=== PATIENT | male | born 1980 | race Caucasian/White ===

== ENCOUNTER 2024-12-24 11:20 | Emergency (ER) | payer OTHER, SELFPAY ==
--- NOTE | ~2024-12-24 | XR_ITS ---
Right ankle Technique: AP, oblique, and lateral views were obtained. Clinical History: Pain Findings: No acute fracture or dislocation is seen. Osseous alignment is anatomic. Ankle mortise and other visualized joint spaces are preserved. Soft tissues are otherwise unremarkable. Impression: No acute abnormality. Reviewed, dictated and finalized at location . Impression: No acute abnormality.
[2024-12-24 11:28] VITALS: BP 135/78; PULSE 81; RESP 20; TEMP 36.9; O2SAT 99
--- NOTE | 2024-12-24 12:14 | ED.LOWEXIN ---
HPI - Extremity Injury (Lower) General Chief Complaint: Extremity Injury, Lower Stated Complaint: Right Ankle Injury Time Seen by Provider: 12/24/24 11:30 Source: patient Mode of arrival: ambulatory Limitations: no limitations History of Present Illness HPI Narrative: 44-year-old male presents with complaint of pain and swelling to right ankle. Patient was at work and was unloading pallets. Reports that plastic that was wrapped around products on a Pallet became caught on his foot causing him to trip and fall. Patient ambulatory with limp. pain worse when bearing weight. Distal neurovascularly intact. All systems reviewed and negative except as noted above. Related Data Home Medications ?Medication ?Instructions ?Recorded ?Confirmed ?Last Taken ?Type atorvastatin 20 mg tablet mg 12/24/24 Unknown History dulaglutide 3 mg/0.5 mL mg subcut 12/24/24 Unknown History subcutaneous pen injector (Trulicity) glipizide 10 mg tablet, extended mg PO 12/24/24 Unknown History release 24 hr lisinopril 10 tablet 12/24/24 Unknown History mg-hydrochlorothiazide 12.5 mg tablet metformin 1,000 mg tablet mg 12/24/24 Unknown History Allergies Allergy/AdvReac Type Severity Reaction Status Date / Time No Known Allergies Allergy Verified 12/24/24 11:36 Review of Systems Review of Systems: CONSTITUTIONAL: Denies fever, chills, or sweats. EYES: Denies visual changes, redness, or discharge. ENT: Denies rhinorrhea, congestion, sore throat, or otalgia. CARDIOVASCULAR: Denies chest pain, palpitations, or edema. RESPIRATORY: Denies cough or dyspnea. GASTROINTESTINAL: Denies abdominal pain, nausea, vomiting, or diarrhea. GENITOURINARY: Denies dysuria or hematuria. SKIN: Denies rash or itching. MUSCULOSKELETAL: Reports right ankle pain and swelling. NEUROLOGIC: Denies headache, numbness, or weakness. PSYCHIATRIC: Denies anxiety or depression. All other systems reviewed are negative, except as documented in HPI. PMFSH Comments At time of signature, agree with nursing past medical, surgical, social and family history. There is no relevant family history pertinent to the presenting complaint. Exam Narrative: GENERAL: This is a well-nourished, well-developed patient, in no apparent distress. HEAD: normocephalic, atraumatic. EYES: PERRL. Sclera clear/white. Vision is grossly intact. EARS: External ears normal NOSE: External nose normal NECK: Neck supple, non-tender without lymphadenopathy, masses or thyromegaly. CARDIOVASCULAR: Regular rate and rhythm without murmurs, gallops, or rubs. RESPIRATORY: Clear to auscultation. Breath sounds equal bilaterally. No wheezes, rales, or rhonchi. SKIN: warm, Dry, intact with no suspicious lesions or rash, good texture and turgor. NEURO: awake, alert, and oriented to person, place and time. There were no obvious focal neurologic abnormalities. EXTREMITIES: Tenderness to lateral and anterior aspect right ankle with mild swelling. No deformity. Range of motion decreased due to pain. Distal neurovascularly intact. Course Course Level of Care: Express Care Visit Vital Signs Vital signs: Vital Signs Temperature 36.9 C 12/24/24 11:28 Pulse Rate 81 12/24/24 11:28 Respiratory Rate 20 12/24/24 11:28 Blood Pressure 135/78 12/24/24 11:28 Pulse Oximetry 99 12/24/24 11:28 Oxygen Delivery Room Air 12/24/24 11:28 Temperature 36.9 C 12/24/24 11:28 Pulse Rate 81 12/24/24 11:28 Respiratory Rate 20 12/24/24 11:28 Blood Pressure 135/78 12/24/24 11:28 Pulse Oximetry 99 12/24/24 11:28 Oxygen Delivery Room Air 12/24/24 11:28 Reviewed MDM - Extremity Injury (Lower) MDM Narrative Medical decision making narrative: x-ray right ankle is negative for fracture. Discussed results with patient. Patient states having a lot of pain when walking. Will give crutches. Recommend using for the next 3-5 days. Recommend with primary care physician if pain is not improving. Patient is well-appearing, nontoxic. Differential Diagnosis Differential diagnosis: Likely ankle sprain and strain and ankle fracture Imaging Data My impression: agree with radiologist Radiologist's impression: Right ankle Technique: AP, oblique, and lateral views were obtained. Clinical History: Pain Findings: No acute fracture or dislocation is seen. Osseous alignment is anatomic. Ankle mortise and other visualized joint spaces are preserved. Soft tissues are otherwise unremarkable. Impression: No acute abnormality. Discharge Plan Discharge Clinical Impression: Mild sprain of right ankle Patient Disposition: Home Condition: Stable Instructions: Ankle Sprain (ED) Additional Instructions: the x-ray of your right ankle was negative for fracture. Wear Gerard wrap to compress swelling and provide support. Use crutches for the next 3-5 days. Take ibuprofen or Tylenol every 6-8 hours as needed for pain. Elevate when at rest. Apply ice as needed for pain. See your doctor if pain is not improving. Patient Language: Greenlandic Prescriptions: No Action atorvastatin 20 mg tablet glipizide 10 mg tablet extended release 24hr PO metformin 1,000 mg tablet lisinopril-hydrochlorothiazide 10-12.5 mg tablet Trulicity 3 mg/0.5 mL pen injector SUBCUT Follow-up/Referrals: UNKNOWN,DOCTOR [Primary Care Provider] - Stand Alone Forms: Work/School Release IP Time of Disposition: 12:25
--- OUTSIDE RECORDS SUMMARY | 2024-12-24 12:35 | XMS_ITS | Referral Summary ---
Author Organization [facility] [address] Address [address] [place] [address] Care Team Providers Care Artificial Teeth Inspector Name Role Phone Ryan Levine MD Primary Care Provider [phone] Encounters Date Type Department Care Team Description 11/23/2024 10:00 AM CDT Office Visit [facility] at [address] [phone] Julianna Gilliland DO Type 2 diabetes mellitus with hyperglycemia, without long-term current use of insulin (HCC) (Primary Dx) 11/20/2024 Telephone [facility] [address] [place] [phone] Corazon Johns NP 11/16/2024 2:30 PM CDT [facility] [address] [place] [phone] Corazon Johns NP Type 2 diabetes mellitus with diabetic polyneuropathy, without long-term current use of insulin (HCC) (Primary Dx); Paresthesias in right hand; Morbid obesity with BMI of 40.0-44.9, adult (HCC); Essential hypertension; Mixed hyperlipidemia due to type 2 diabetes mellitus (HCC) 11/16/2024 Telephone [facility] [address] [place] [address] Ryan Levine MD 11/09/2024 10:00 AM CDT [facility] [address] [place] [address] Ryan Levine MD Morbid obesity with BMI of 40.0-44.9, adult (HCC) (Primary Dx); Type 2 diabetes mellitus with diabetic polyneuropathy, without long-term current use of insulin ([facility]); Routine history and physical examination of adult 10/31/2024 Telephone [facility] [address] [place] [address] Ryan Levine MD NonCompliant Patient 10/19/2024 11:20 AM CDT Lab [facility] [address] [place] [address] Type 2 diabetes mellitus with diabetic polyneuropathy, without long-term current use of insulin ([facility]); Prostate cancer screening; Mixed hyperlipidemia due to type 2 diabetes mellitus ([facility]); Essential hypertension 09/26/2024 Telephone [facility] [address] [place] [address] Ryan Levine MD from Last 3 Months Allergies No known active allergies Medications blood-glucose meter misc Use daily or as directed for monitoring of diabetes. 1 each 024 Active lancets misc Use to check blood sugar bid 200 each 3 024 Active atorvastatin (LIPITOR) 20 mg tabletIndications :Mixed hyperlipidemia due to type 2 diabetes mellitus (HCC) Take 1 tablet by mouth once daily 30 tablet 5 025 Active metFORMIN (GLUCOPHAGE) 1,000 mg tabletIndications :Type 2 diabetes mellitus with diabetic polyneuropathy, without long-term current use of insulin ([facility]) Take 1 tablet by mouth twice daily 60 tablet 5 025 Active blood glucose diagnostic (glucose blood) stripIndications: Type 2 diabetes mellitus with diabetic polyneuropathy, without long-term current use of insulin ([facility]) Use to check blood sugar bid 200 each 3 025 2025 Active blood-glucose meter kitIndications:Ty pe 2 diabetes mellitus with diabetic polyneuropathy, without long-term current use of insulin ([facility]) Use to check blood sugar bid 1 kit 025 Active blood glucose diagnostic (glucose blood) stripIndications: Type 2 diabetes mellitus with diabetic polyneuropathy, without long-term current use of insulin (HCC) Use to check blood sugar bid 200 each 3 025 2025 Active lancets miscIndications:T ype 2 diabetes mellitus with diabetic polyneuropathy, without long-term current use of insulin (HCC) Use to check blood sugar bid 200 each 3 Active dulaglutide (Trulicity) 3 mg/0.5 mL pen injector Inject 0.5 mL (3 mg total) under the skin every 7 days 2 mL 6 Active FreeStyle Mariel 3 Plus Sensor device 1 Device continuously E11.65 6 each 4 025 2024 Active blood-glucose,rec eiver,cont (FreeStyle Mariel 3 [place]) misc Use for BG monitoring 1 each Active glipiZIDE XL (GLUCOTROL XL) 10 mg 24 hr tablet Take 2 tablets by mouth once daily 180 tablet 3 Active lisinopril-hydroC HLOROthiazide (ZESTORETIC) 10-12.5 mg per tabletIndications :Essential hypertension Take 1 tablet by mouth once daily 30 tablet 2 Active glipiZIDE XL (GLUCOTROL XL) 10 mg 24 hr tabletIndications :type 2 diabetes mellitus Take 2 tablets (20 mg total) by mouth daily 60 tablet 5 024 2024 Discontinued lisinopril-hydroC HLOROthiazide (ZESTORETIC) 10-12.5 mg per tabletIndications :Essential hypertension Take 1 tablet by mouth daily 30 tablet 5 024 2024 Discontinued Active Problems Problem Noted Date Diagnosed Date Paresthesias in right hand 11/16/2024 Assessment & Plan (11/16/2024 3:10 PM CDT): Acute, new Likely positional v recurrent movement Relative history: Reports symptoms occur during masturbation Current meds: None Today's Plan: Discussed repositioning to avoid paresthesias of hand during particular activities Discussed possibility of new onset neuropathy in setting of uncontrolled DM Encourage patient to take mental note and/or keep diary of frequency, intensity, activity associated with paresthesias Goal: decreased episodes of paresthesias Mixed hyperlipidemia due to type 2 diabetes speedy itus 03/19/2024 Assessment & Plan (11/16/2024 2:09 PM CDT): Chronic, unstable Relative hx: DM2, obesity, HTN Labs reviewed: CMP, triglycerides Current therapy (ies)/home meds: Lipitor Today's Plan: Meds: Continue Lipitor Recs: heart healthy diet, regular exercise, managing stress, decreasing alcohol intake Goal: Patient is specific triglyceride goal less than 200 mg/dL Assessment & Plan (08/01/2024 4:11 PM WARP CLAMPER): FLP AND LDL WERE REVIEWED GOAL LDL IS UNDER 100 Assessment & Plan (03/19/2024 6:15 PM CDT): GOAL LDL IS UNDER 100 FOR PRIMARY PREVENTION Type 2 diabetes mellitus wit h diabetic polyneuropathy, without long-term current use of insulin 09/16/2023 Assessment & Plan (11/16/2024 2:52 PM CDT): Chronic, unstable Relative hx: Episodes of hyperglycemia Current meds: Metformin, Trulicity, glipizide, Ozempic Glucose readings at home: Greater than 400 Labs reviewed: Lab Results Component Value Date HGBA1C 10.7 (H) 10/19/2024 Today's Plan: Meds: Continue meds as above given recent adjustment Point of care glucose today 231 Elevated blood sugars likely contributed to recent steroid use Labs: none today Recs: heart healthy diet, regular exercise, managing stress Consults: Established with endocrine Goal: hemoglobin A1c < 7.0% per PCP Assessment & Plan (08/01/2024 4:11 PM WARP CLAMPER): CHRONIC AND STABLE DISCUSSED BETTER CONTROL OF DIABETES WITH RESULTANT IMEPROVEMENT IN NERUOPATHY Assessment & Plan (03/19/2024 6:13 PM CDT): ENCOURAGED DILATED EYE EXAM GOAL HBAIC IS UNDER 7 PERCENT LAST HBAIC WAS AROUND 9.9 PERCENT FOOT EXAM IS NL LAST CREATININE WAS NL Assessment & Plan (11/22/2023 5:33 PM CDT): Contin ue metformin 1000 mg po bid Contin ue glucotrol 5 mg po day Timer table written given Fs fasting 120 random less then 180 Off of zoempic issues with insurance trial of truclicity once a week after we get the hbaic results Assessment & Plan (09/16/2023 2:34 PM WARP CLAMPER): Dm type 2 with (neuropathy) Recent A1C?. Continue low carb diet. Consider Dietary referral Next A1C - now Most recent Microalbumin - due now Continue current medications. Patient advised Ozempic may not be approved through [employer]. If not will try alternative Dilated retinal eye exam -Due now, referral placed BP above goal <130/80 on ACEI - Continue current meds and will adjust at f/u if needed Vaccines - PCV, Flu, TDAP Essential hypertension 09/16/2023 Assessment & Plan (11/16/2024 2:48 PM CDT): Chronic, stable Differential dx: HTN 2/2 essential/benign v DM2 Relative hx: DM2, obesity BP today: 142/60 Labs reviewed: CMP, elevated glucose otherwise unremarkable Current therapy (ies)/home meds: Lisinopril-hydrochlorothiazide Today's Plan: Meds: Continue lisinopril-HCTZ Labs: Recommend repeat CMP in 6 months Recs: heart healthy diet, regular exercise, managing stress Goal: BP 130/80 Assessment & Plan (08/01/2024 4:10 PM WARP CLAMPER): GOAL BP IS 130/80 OR UNDER LOW NA DIET Assessment & Plan (03/19/2024 6:14 PM CDT): GOAL BP IS 130/80 OR UNDER ON VERONICA PLUS DIURETCI Assessment & Plan (11/22/2023 5:33 PM CDT): Goal bp is 130/80 or less On veronica plus hctz Assessment & Plan (09/16/2023 2:30 PM WARP CLAMPER): Chronic and elevated. Goal < 130/80. Discussed with patient. Recommend continue lisinopril/HCTZ 10-12.5 daily Low-salt diet Will recheck at follow-up in 4 weeks and if still elevated will adjust medications Morbid obesity with BMI of 40.0-44.9, adult 02/2024 Assessment & Plan (11/16/2024 2:48 PM CDT): Chronic, unstable Differential ddx: excess caloric intake (in setting of chronicity of disease) v DM2 Relative history: DM2, HTN, HLD Current meds: Ozempic Wt Readings from Last 3 Encounters: 11/09/24 135.4 kg (298 lb 9.6 oz) 08/01/24 134.7 kg (297 lb) 05/10/24 135.9 kg (299 lb 11.2 oz) There is no height or weight on file to calculate BMI. Today's Plan: Meds: Continue Ozempic, no change in dosing given recent initiation 11/09/2024. monitor for side effects of medication primarily GI (constipation, nausea) and mental status changes (forgetfulness, dizziness, mood swings) Labs: BMP, Mag heart healthy diet, regular exercise, managing stress, decreasing alcohol intake Goal: decrease weight by 1-2 lbs/week Assessment & Plan (11/09/2024 5:43 PM CDT): DISCUSSED LIFE STYLE MODIFICATION Assessment & Plan (03/19/2024 6:15 PM CDT): STATUS CHRONIC AND STABLE DISCUSSED DIETARY COUNSELLING DISCUSSED MAY HAVE TO INCREASE THE DOSAGE OF TRULICITY ONCE I GET THE HBAIC RESULTS Assessment & Plan (11/22/2023 5:34 PM CDT): Status stable with co morbidities Including dm type 2/ hypertensin and also mixed hyperlipidemia goal for ldl is under 100 Resolved Problems Problem Noted Date Diagnosed Date Resolved Date Routine history and physical examination of adult 11/09/2024 11/16/2024 Assessment & Plan (11/09/2024 5:43 PM CDT): IMMUNIZATIONS WERE REVIEWED EYE EXAM AND DENTAL ENCOURGAED DM TYPE 2 NON INSULIN DEPEDNENT GOAL HBAIC IS UNDER 7 PERCENT FOOT EXAM IS NL RECTAL GUAIC NEG ESSENTIAL HTN GOAL BP IS 130/80 OR UNDER MIXED HYPERLIPIMDEIA GOAL LDL IS UNDER 100 Irritation of penis 09/16/2023 11/17/19 25 Assessment & Plan (09/16/2023 2:32 PM WARP CLAMPER): Recurrent. Patient declined physical genital exam today. Symptoms may be secondary to friction irritation. Advise continue to monitor. Should use a lubricant if masturbating otherwise keep area clean and dry. If notes increased redness, pain, drainage, foul odor should follow-up for evaluation Immunizations Immunization Administration Dates Next Due Influenza, Unspecified 08/01/2024(Deferr ed: Patient Refused),04/10/2023(Deferred: Patient Refused) Social History Tobacco Use Types Packs/Day Years Used Date Smoking Tobacco: Former Cigarettes Passive Smoke Exposure: Never Smokeless Tobacco: Never AUDIT-C Answer Date Recorded Q1: How often do you have a drink containing alc ohol? Never 09/14/2023 Average Number of Drinks Not on file 024 Frequency of Binge Drinking Not on file 12/2023 PHQ-2 Answer Date Recorded PHQ-2 Total Score (If total score is 3 or more points, staff should administer the PHQ-9) 0 11/09/2024 PHQ-9 Answer Date Recorded PHQ-9 Total Score 12 09/14/2023 Sex and Gender Information Value Date Recorded Sex Assigned at Not on file Legal Sex Male 1:32 PM WARP CLAMPER Gender Identity Not on file Sexual Orientation Not on file Last Filed Vital Signs Vital Sign Reading Time Taken Comments Blood Pressure 118/68 11/23/2024 9:46 AM CDT Pulse 76 11/23/2024 9:46 AM CDT Temperature 36.2 C (97.1 F) 11/16/2024 2:34 PM CDT Respiratory Rate 16 11/16/2024 2:34 PM CDT Oxygen Saturation 98% 11/16/2024 2:34 PM CDT Inhaled Oxygen Concentration - - Weight 131 kg (288 lb 11.2 oz) 11/23/2024 9:46 A M CDT Height 175.3 cm (5' 9) 11/23/2024 9:46 AM CDT Body Mass Index 42.63 11/23/2024 9:46 AM CDT Plan of Treatment Not on file Procedures Procedure Name Priority Date/Time Associated Diagnosis Comments POCT GLUCOSE Routine 11/16/2024 2:42 PM CDT Type 2 diabetes mellitus with diabetic polyneuropathy, without long-term current use of insulin (HCC) EGFR Routine 10/19/2024 11:13 AM CDT Type 2 diabetes mellitus with diabetic polyneuropathy, without long-term current use of insulin (HCC) Essential hypertension DIFFERENTIAL AUTO Routine 10/19/2024 11: 13 AM CDT Type 2 diabetes mellitus with diabetic polyneuropathy, without long-term current use of insulin (HCC) Essential hypertension CBC WITH AUTO DIFFERENTIAL Routine 10/19/2024 11:13 AM CDT Type 2 diabetes mellitus with diabetic polyneuropathy, without long-term current use of insulin (HCC) Essential hypertension COMPREHENSIVE METABOLIC PANEL Routine 10/19/2024 11:13 AM CDT Type 2 diabetes mellitus with diabetic polyneuropathy, without long-term current use of insulin (HCC) Essential hypertension LIPID PANEL Routine 10/19/2024 11:13 AM CDT Mixed hyperlipidemia due to type 2 diabetes mellitus (HCC) PSA SCREEN Routine 10/19/2024 11:13 AM CDT Prostate cancer screening HEMOGLOBIN A1C Routine 10/19/2024 11:13 AM CDT Type 2 diabetes mellitus with diabetic polyneuropathy, without long-term current use of insulin (HCC) ALBUMIN CREATININE RATIO, URINE Routine 10/19/2024 11:13 AM CDT Type 2 diabetes mellitus with diabetic polyneuropathy, without long-term current use of insulin (HCC) HM DIABETES EYE EXAM Routine 08/08/2024 10:24 AM WARP CLAMPER HEPATITIS C ANTIBODY Routine 04/12/2024 12:04 PM CDT Need for hepatitis C screening test from Last 3 Months or Most Recently Relevant to Health Maintenance Results * POCT glucose (11/16/2024 2:42 PM CDT) Glucose Blood, POC 231 Normal Fasting 70 - 100, Random <200 mg/dL Comment:nothing to eat since 10am Blood 11/16/2024 2:42 PM CDT us Corazon Johns [facility] POINT OF CARE TEST ORDERABL ES Final Result * eGFR (10/19/2024 11:13 AM CDT) eGFR >90 >=60 mL/min/1. 73 m2 Comment: Interpretive Data Reference Interval Normal >/= 90 mL/min/1.73m2 Mildly decreased* 60 - 89 mL/min/1.73m2 Mildly to moderately decreased 45 - 59 mL/min/1.73m2 Moderately to severely decreased 30 - 44 mL/min/1.73m2 Severely decreased 15 - 29 mL/min/1.73m2 Kidney Failure < 15 mL/min/1.73m2 *Relative to young adult level Estimated glomerular filtration rate is determined by the 2020 CKD-EPI equation recommended by the National Kidney Foundation (A Unifying Approach to GFR Estimation: Recommendations of the NKF-ASK Task Force on Reassessing the Inclusion of Race in Diagnosing Kidney Disease, JASN 2020). The CKD-EPI equation should not be used for patients with unstable renal function and has not been validated in children and those over 70. Current interpretive data was last reviewed 2021. Testing performed by: [facility], [address] [place] [address]., [id number] Blood 10/19/2024 11:1 3 AM CDT 10/19/2024 6:03 PM CDT us Ryan Levine MD LAB BLOOD ORDERABLES Final Result [facility] [id number] [facility] Department [place] [address] * Differential, auto (10/19/2024 11:13 AM CDT) Neutrophil abs 4.37 1.50 - 6.50 K/cumm Comment:Testing performed by : [address] [address] Imm gran abs 0.03 0.00 - 0.10 K/cumm [facility] Comment:Testing performed by : [address], [address] Lymphocyte abs 2.58 0.80 - 3.30 K/cumm [facility] Comment:Testing performed by : [address], [address] Monocyte abs 0.42 0.20 - 0.80 K/cumm [facility] Comment:Testing performed by : [address] [address] Eosinophil abs 0.23 0.00 - 0.50 K/cumm [facility] Comment:Testing performed by : [address], [address] Basophil abs 0.03 0.00 - 0.10 K/cumm [facility] Comment:Testing performed by : [address], [address] Neutrophil pct 57.0 % [facility] Comment: Interpretive Data Percent cell count reference ranges are not reported, since discordance with absolute values may lead to misinterpretation of CBC data. Current Interpretive Data was last revised on 2017. Testing performed by: [address] [address] Imm gran pct 0.4 % [facility] Comment: Interpretive Data Percent cell count reference ranges are not reported, since discordance with absolute values may lead to misinterpretation of CBC data. Current Interpretive Data was last revised on 2017. Testing performed by: [address], [address] Lymphocyte pct 33.7 % [facility] Comment: Interpretive Data Percent cell count reference ranges are not reported, since discordance with absolute values may lead to misinterpretation of CBC data. Current Interpretive Data was last revised on 2017. Testing performed by: [address], [address] Monocyte pct 5.5 % [facility] Comment: Interpretive Data Percent cell count reference ranges are not reported, since discordance with absolute values may lead to misinterpretation of CBC data. Current Interpretive Data was last revised on 2017. Testing performed by: [facility], [address] [place] [address]., [address] Eosinophil pct 3.0 % [facility] Comment: Interpretive Data Percent cell count reference ranges are not reported, since discordance with absolute values may lead to misinterpretation of CBC data. Current Interpretive Data was last revised on 2017. Testing performed by: [address] [address] Basophil pct 0.4 % [facility] Comment: Interpretive Data Percent cell count reference ranges are not reported, since discordance with absolute values may lead to misinterpretation of CBC data. Current Interpretive Data was last revised on 2017. Testing performed by: [address] [address] Blood 10/19/2024 11:1 3 AM CDT 10/19/2024 5:50 PM CDT Ryan Levine MD LAB BLOOD ORDERABLES Final Result [facility] [address] Department [place] [address] * PSA screen (10/19/2024 11:13 AM CDT) PSA-Total 0.72 ng/mL Comment: Interpretive Data AGE SEX REFERENCE INTERVAL 0 minutes-150 years Female None 0 minutes-49 years Male None 50-59 years Male 0-3.90 60-69 years Male 0-5.40 70-79 years Male 0-6.20 80-150 years Male 0-6.20 The Araceli PSA Total assay procedure was used. Results from different manufacturers or methods may not be comparable. Serial testing should be performed using the same method. Current interpretive data last revised 21. Testing performed by: [address] [address] Blood 10/19/2024 11:1 3 AM CDT 10/19/2024 5:50 PM CDT Ryan Levine MD LAB BLOOD ORDERABLES Final Result [address] Department [place] [address] * CBC with auto differential (10/19/2024 11:13 AM CDT) [facility] WBC 7.66 3.80 - 9.90 K/cumm Comment:Testing performed by : [address], [address] Hgb 15.5 13.0 - 17.5 g/dL [facility] Comment:Testing performed by : [address], [address] Hct 45.9 38.9 - 50.3 % [facility] Comment:Testing performed by : [address], [address] Plt 340 150 - 400 K/cumm [facility] Comment:Testing performed by : [address], [address] MPV 9.1 9.1 - 12.3 fL [facility] Comment:Testing performed by : [address], [address] RBC 5.04 4.30 - 5.80 M/cumm [facility] Comment:Testing performed by : [address], [address] MCV 91.1 81.3 - 96.4 fL [facility] Comment:Testing performed by : [address], [address] MCH 30.8 27.1 - 33.3 pg [facility] Comment:Testing performed by : [address], [address] MCHC 33.8 32.3 - 35.7 g/dL [facility] Comment:Testing performed by : [address], [address] RDW CV 12.5 11.1 - 14.9 % [facility] Comment:Testing performed by : [address] [address] RDW SD 40.9 35.7 - 48.1 fL [facility] Comment:Testing performed by : [address] [address] NRBC abs 0.00 0.00 - 0.01 K/cumm [facility] HERNANDEZ Comment:Testing performed by : [address] [address] Blood 10/19/2024 11:1 3 AM CDT 10/19/2024 5:50 PM CDT Ryan Levine MD LAB BLOOD ORDERABLES Final Result Performing Organization Address City/[facility] Co de Phone Number [facility] [address] Department [place] [address] * (ABNORMAL) Albumin Creatinine Ratio, Urine (10/19/2024 11:13 AM CDT) Albumin Ur 87.8 mg/L Comment: Interpretive Data No reference range established. Current interpretive data was last revised 2018. Testing performed by: [address] [address] Creatinine Ur 239.1 mg/dL [facility] Comment: Interpretive Data No reference range established. Current interpretive data was last revised 2018. Testing performed by: [address] [address] Albumin Creatinine Ratio, Ur 37(H) 1 - 29 mg/g [facility] Comment:Testing performed by : [address] [address] Urine 10/19/2024 11:1 3 AM CDT 10/19/2024 5:50 PM CDT Ryan Levine MD LAB URINE ORDERABLES Final Result Performing Organization Address City/[facility]/ZIP Co de Phone Number [facility] [id number] [facility] [place] [address] * (ABNORMAL) Hemoglobin A1c (10/19/2024 11:13 AM CDT) Hgb A1C 10.7(H) 4.0 - 5.6 % Comment:Testing performed by : [address] [address] Estimated Average Glucose 260 mg/dL [facility] Comment: The ADA recommends reporting an estimated Average Glucose (eAG) with all Hemoglobin A1c results using the equation derived from a study of 507 normal and diabetic adults. Minority populations were underrepresented and children were not included. (Diabetes Care 31:9443-1266, 2008). The eAG is not equivalent to a fasting glucose. Testing performed by: [facility], [address] [place] [address]., [address] Blood 10/19/2024 11:1 3 AM CDT 10/19/2024 5:50 PM CDT us Ryan Levine MD LAB BLOOD ORDERABLES Final Result [facility] [address] Department [place] [address] * (ABNORMAL) Lipid panel (10/19/2024 11:13 AM CDT) Pathologist [facility] Cholesterol 128 30 - 199 mg/dL Comment: Interpretive Data Ages < or = 19 years Acceptable: <170 mg/dL Borderline high: 170-199 mg/dL High: >or= 200 mg/dL Ages > or = 20 years Desirable: <200 mg/dL Borderline high: 200-239 mg/dL High: >or= 240 mg/dL Literature References: 1. Expert Panel on Integrated Guidelines for Cardiovascular Health and Risk Reduction in Children and Adolescents. Pediatrics 2011;128:S213 2. NCEP Expert Panel. Circulation 2004;110:227 Current Interpretive Data was last revised on 2018. Testing performed by: [address] [address] Triglycerides 293(H) <=149 mg/dL [facility] HERNANDEZ Comment: Interpretive Data Ages < or = 9 years Acceptable: <75 mg/dL Borderline high: 75-99 mg/dL High: >or= 100 mg/dL Ages 10 to 20 years Acceptable: <90 mg/dL Borderline high: 90-129 mg/dL High: >or= 130 mg/dL Ages > or = 20 years Desirable: <150 mg/dL Borderline high: 150-199 mg/dL High: 200-499 mg/dL Very high: >or= 499 mg/dL Literature References: 1. Expert Panel on Integrated Guidelines for Cardiovascular Health and Risk Reduction in Children and Adolescents. Pediatrics 2011;128:S213 2. NCEP Expert Panel. Circulation 2004;110:227 Current Interpretive Data was last revised on 2018. Testing performed by: [facility], [address] [place] [address]., [address] HDL 36(L) >=40 mg/dL [facility] Comment: Interpretive Data Ages < or = 19 years Acceptable: >45 mg/dL Borderline low: 40-45 mg/dL Low: <40 mg/dL Ages > or = 20 years Desirable: >or= 60 mg/dL Low: <40 mg/dL Literature References: 1. Expert Panel on Integrated Guidelines for Cardiovascular Health and Risk Reduction in Children and Adolescents. Pediatrics 2011;128:S213 2. NCEP Expert Panel. Circulation 2004;110:227 Current Interpretive Data was last revised on 2018. Testing performed by: [facility], [address] [place] [address]., [address] LDL, calculated 47 <=129 mg/dL [facility] Comment: Interpretive Data Ages < or = 19 years Acceptable: <110 mg/dL Borderline high: 110-129 mg/dL High: >or= 130 mg/dL Ages > or = 20 years Optimal: <100 mg/dL Near optimal: 100-129 mg/dL Borderline high: 130-159 mg/dL High: >160 mg/dL Calculated using the Eliecer LDL-C estimating equation. This equation was implemented on 2024. Prior to this date LDL-C was estimated using the Friedewald equation. Literature References: 1. Expert Panel on Integrated Guidelines for Cardiovascular Health and Risk Reduction in Children and Adolescents. Pediatrics 2011;128:S213 2. NCEP Expert Panel. Circulation 2004;110:227 3. Eliecer Jarrett et al. MERNA Cardiol. 2020 November 08;5(5):540-548. doi: 10.1001/jamacardio.2020.0013 Current Interpretive Data was last revised on 2024. Testing performed by: [address] [address] Non-HDL Cholesterol 92 mg/dL [facility] Comment: Interpretive Data Ages < or = 19 years Acceptable: <120 mg/dL Borderline high: 120-144 mg/dL High: >145 mg/dL Ages > or = 20 years When triglycerides are >200 mg/dL, Non-HDL cholesterol is a secondary target of therapy with treatment goals that are 30 mg/dL greater than the LDL cholesterol target. Literature References: 1. Expert Panel on Integrated Guidelines for Cardiovascular Health and Risk Reduction in Children and Adolescents. Pediatrics 2011;128:S213 2. NCEP Expert Panel. Circulation 2004;110:227 Current Interpretive Data was last revised on 2018. Testing performed by: [address] [address] Chol/HDL ratio 4 [facility] Comment:Testing performed by : [address] [address] Blood 10/19/2024 11:1 3 AM CDT 10/19/2024 5:50 PM CDT Ryan Levine MD LAB BLOOD ORDERABLES Final Result [facility] [address] Department [place] [address] * (ABNORMAL) Comprehensive metabolic panel (10/19/2024 11:13 AM CDT) Sodium 134(L) 135 - 145 mmol/L Comment:Testing performed by : [address] [address] Potassium, pl 4.5 3.3 - 4.9 mmol/L [facility] Comment:Testing performed by : [address] [address] Chloride 98 97 - 110 mmol/L [facility] Comment:Testing performed by : [address] [address] CO2 26 22 - 32 mmol/L [facility] Comment:Testing performed by : [address] [place]., [address] Anion gap 10 2 - 15 mmol/L CERNER CH Comment:Testing performed by : [address] [address] BUN 16 6 - 25 mg/dL CERNER CH Comment:Testing performed by : [address] [address] Creatinine 0.93 0.80 - 1.30 mg/dL C[facility] CH Comment:Testing performed by : [address], [address] Glucose 202(H) 70 - 199 mg/dL C[facility] CH Comment: Interpretive Data Fasting glucose >/= 126 mg/dl is diagnostic for diabetes. Fasting is defined as no caloric intake for at least 8 hours. Fasting glucose between 100 mg/dl to 125 mg/dl is diagnostic of prediabetes. In a patient with classic symptoms of hyperglycemia or hyperglycemic crisis, a random glucose >/= 200 mg/dl is diagnostic for diabetes. In the absence of unequivocal hyperglycemia, results should be confirmed by repeat testing. The classification and Diagnosis of Diabetes Diabetes Care 2021; 46: S19-S40. Current interpretive data was last revised 2022. Testing performed by: [address] [address] Calcium 9.5 8.5 - 10.3 mg/dL C[facility]ER CH Comment:Testing performed by : [address] [address] Bilirubin, total 0.6 0.1 - 1.2 mg/dL C[facility] CH Comment:Testing performed by : [address], [address] Protein, pl 7.2 6.5 - 8.5 g/dL CERNER CH Comment:Testing performed by : [address], [address] Albumin 3.9 3.5 - 5.0 g/dL C[facility] CH Comment:Testing performed by : [address], [address] Alk phos 75 40 - 130 Units/L C[facility] CH Comment:Testing performed by : [address], [address] ALT 25 7 - 55 Units/L CERNER CH Comment:Testing performed by : [facility], [address] [place] [address]., [address] AST 28 10 - 50 Units/L [facility] Comment:Testing performed by : [address] [address] Blood 10/19/2024 11:1 3 AM CDT 10/19/2024 5:50 PM CDT Result [facility] Ryan Levine MD LAB BLOOD ORDERABLES Final Result Performing Organization Address City/[facility]/ZIP Co de Phone Number [facility] [address] [address] Department [place] [address] * DIABETES EYE EXAM (08/08/2024 10:24 AM WARP CLAMPER) SCRIBED DIABETIC DILATED EYE EXAM Normal Petros Gao MD HEALTH MAINTENANCE Final Result * Hepatitis C antibody Blood (04/12/2024 12:04 PM CDT) Hep C Ab Nonreactive Nonreactive Comment: Interpretive Data Nonreactive: Antibodies to HCV not detected. Does NOT exclude the possibility of recent exposure to HCV. Equivocal: Equivocal for HCV antibodies. Supplemental molecular testing will be automatically performed to determine infection status in accordance with current CDC screening recommendations. Reactive: Positive for HCV antibodies. This may represent current or past HCV infection. Supplemental molecular testing will be automatically performed to determine current infection status in accordance with current CDC screening recommendations. Interpretive data was last revised on 2019. Testing performed by: [facility], [address] [place] [address]., [address] Blood 04/12/2024 12:0 4 PM CDT 04/12/2024 5:26 PM CDT Result [facility] Ryan Levine MD LAB MICROBIOLOGY - GENERAL ORDERABLES Final Result Performing Organization Address City/[facility]/ZIP Co de Phone Number [facility] [id number] [address] Department [place] [address] from Last 3 Months or Most Recently Relevant to Health Maintenance Insurance [facility] Care Teams Artificial Teeth Inspector Relationship Specialty Start Date End Date Ryan Levine MD [address] [place] [address] PCP - General Internal Medicine 11/22/23
--- OUTSIDE RECORDS SUMMARY | 2024-12-24 12:35 | XMS_ITS | Clinical Summary ---
Author Organization [facility] [address] Address [address] [place] [address] Care Team Providers Care Hygiene Teacher Name Role Phone Ryan Levine MD Primary Care Provider [phone] Allergies No known active allergies Medications blood-glucose [...] without long-term current use of insulin (HCC) Take 1 tablet by mouth twice daily [...] (HCC) Use to check blood sugar bid 1 [...] blood sugar bid 200 each 3 025 Active dulaglutide (Trulicity) 3 mg/0.5 mL pen injector Inject 0.5 mL (3 mg total) under the skin every 7 days 2 mL 6 Active FreeStyle Mariel 3 Plus Sensor device 1 Device continuously E11.65 6 each 4 025 2024 Active blood-glucose,rec eiver,cont (FreeStyle Mariel 3 [place]) misc Use for BG monitoring 1 each Active glipiZIDE XL (GLUCOTROL XL) 10 mg 24 hr tablet Take 2 tablets by mouth once daily 180 tablet 3 025 Active lisinopril-hydroC HLOROthiazide (ZESTORETIC) 10-12.5 mg per tabletIndications :Essential hypertension Take 1 tablet by mouth once daily 30 tablet 2 025 Active glipiZIDE XL (GLUCOTROL XL) 10 mg [...] mg/dL Assessment & Plan (08/01/2024 4:11 PM FORM SETTER HELPER): FLP AND LDL WERE REVIEWED GOAL LDL [...] PCP Assessment & Plan (08/01/2024 4:11 PM FORM SETTER HELPER): CHRONIC AND STABLE DISCUSSED BETTER CONTROL OF [...] results Assessment & Plan (09/16/2023 2:34 PM FORM SETTER HELPER): Dm type 2 with (neuropathy) Recent A1C?. [...] 130/80 Assessment & Plan (08/01/2024 4:10 PM FORM SETTER HELPER): GOAL BP IS 130/80 OR UNDER LOW NA DIET Assessment & Plan (03/19/2024 6:14 PM CDT): GOAL BP IS 130/80 OR UNDER ON VERONICA PLUS DIURETCI Assessment & Plan (11/22/2023 5:33 PM CDT): Goal bp is 130/80 or less On veronica plus hctz Assessment & Plan (09/16/2023 2:30 PM FORM SETTER HELPER): Chronic and elevated. Goal < 130/80. Discussed [...] UNDER 100 Irritation of penis 09/16/2023 11/17/19 Assessment & Plan (09/16/2023 2:32 PM FORM SETTER HELPER): Recurrent. Patient declined physical genital exam today. Symptoms may be secondary to friction irritation. Advise continue to monitor. Should use a lubricant if masturbating otherwise keep area clean and dry. If notes increased redness, pain, drainage, foul odor should follow-up for evaluation Encounters Date Type Department Care Team Description 11/23/2024 10:00 AM CDT Office Visit [facility] at [address] [address] Julianna Gilliland, Type 2 diabetes mellitus with hyperglycemia, without long-term current use of insulin (HCC) (Primary Dx) 11/20/2024 Telephone [facility] [address] [place] [address] Corazon Johns NP 11/16/2024 2:30 PM CDT Office Visit [facility] [address] [place] [address] Corazon Johns NP Type 2 diabetes mellitus with diabetic polyneuropathy, without long-term current use of insulin (HCC) (Primary Dx); Paresthesias in right hand; Morbid obesity with BMI of 40.0-44.9, adult (HCC); Essential hypertension; Mixed hyperlipidemia due to type 2 diabetes mellitus (HCC) 11/16/2024 Telephone [facility] [address] [place] [address] Ryan Levine MD 11/09/2024 10:00 AM CDT Office Visit [facility] [address] [place] [address] Ryan Levine MD Morbid obesity with BMI of 40.0-44.9, adult (HCC) (Primary Dx); Type 2 diabetes mellitus with diabetic polyneuropathy, without long-term current use of insulin (HCC); Routine history and physical examination of adult 10/31/2024 Telephone [facility] [address] [place] [address] Ryan Levine MD NonCompliant Patient 10/19/2024 11:20 AM CDT Lab [facility] [address] [place] [address] Type 2 diabetes mellitus with diabetic polyneuropathy, without long-term current use of insulin (HCC); Prostate cancer screening; Mixed hyperlipidemia due to type 2 diabetes mellitus (HCC); Essential hypertension 09/26/2024 Telephone [facility] [address] [place] [address] Ryan Levine MD from Last 3 Months Immunizations Immunization Administration Dates Next Due Influenza, Unspecified 08/01/2024(Deferr ed: Patient Refused),04/10/2023(Deferred: Patient Refused) Medical History Medical History Date Comments Irritation of penis 09/16/2023 Type 2 diabetes mellitus (HCC) Social History Tobacco Use Types Packs/Day Years [...] on file Legal Sex Male 1:32 PM FORM SETTER HELPER Gender Identity Not on file Sexual Orientation Not on file Obstetrics History Last Filed Vital Signs Vital Sign Reading [...] 11/23/2024 9:46 AM CDT Plan of Treatment Health Maintenance Due Date Last Done Comments DTaP/Tdap/Td Vaccine (1 - Tdap) 1992 Varicella Vaccines (1 of 2 - 13+ 2-dose series) 1994 Pneumococcal vaccine <65 (1 of 2 - PCV) 2000 Influenza Vaccine (Season Ended) 2025 Hemoglobin A1C 04/20/2025 10/19/2024, 03/19/2024, 11/22/2023 Dilated Eye Exam 08/08/2025 08/08/2024, 08/08/2024 Albumin Creatinine Ratio, Urine 10/19/2025 10/19/2024, 05/10/2024 Lipid Panel 10/19/2025 10/19/2024, 03/19/2024, 11/22/2023 eGFR 10/19/2025 10/19/2024, 11/22/2023 Depression Screening 11/09/2025 11/09/2024, 09/14/2023, 09/14/2023 Foot Exam 11/09/2025 11/09/2024, 09/14/2023 Regular Well Visit/Exam 18-64 11/09/2025 11/09/2024 Hepatitis B Screening Completed 04/12/2024 Hepatitis C Screening Completed 04/12/2024 HPV Vaccines Aged Out No longer eligi ble based on patient's age to complete this topic Procedures Procedure Name Priority Date/Time Associated Diagnosis [...] DIABETES EYE EXAM Routine 08/08/2024 10:24 AM FORM SETTER HELPER HEPATITIS C ANTIBODY Routine 04/12/2024 12:04 PM CDT Need for hepatitis C screening test from Last 3 Months or Most Recently Relevant to Health Maintenance Results * POCT glucose (11/16/2024 2:42 PM CDT) Pathologist [facility] Glucose Blood, POC 231 Normal Fasting 70 - 100, Random <200 mg/dL Comment:nothing to eat since 10am Blood 11/16/2024 2:42 PM CDT Corazon Johns NP POINT OF CARE TEST ORDERABL ES Final Result * eGFR (10/19/2024 11:13 AM CDT) Pathologist [facility] eGFR >90 >=60 mL/min/1. 73 m2 Comment: [...] was last reviewed 2021. Testing performed by: [address] [address] Blood 10/19/2024 11:1 3 AM CDT 10/19/2024 6:03 PM CDT Ryan Levine MD LAB BLOOD ORDERABLES Final Result [address] Department [place] [address] * Differential, auto (10/19/2024 11:13 AM CDT) Neutrophil abs 4.37 1.50 - 6.50 K/cumm Comment:Testing performed by : [address] [address] Imm gran abs 0.03 0.00 - 0.10 K/cumm [facility] Comment:Testing performed by : [address], [address] Lymphocyte abs 2.58 0.80 - 3.30 K/cumm [facility] Comment:Testing performed by : [address] [address] Monocyte abs 0.42 0.20 - 0.80 K/cumm [facility] Comment:Testing performed by : [address], [place]., [address] Eosinophil abs 0.23 0.00 - 0.50 K/cumm [facility] CH Comment:Testing performed by : [facility], [address] [place] [address]., [address] Basophil abs 0.03 0.00 - 0.10 K/cumm C[facility]ER CH Comment:Testing performed by : [address] [address] Neutrophil pct 57.0 % [facility] CH Comment: Interpretive Data Percent cell count reference ranges are not reported, since discordance with absolute values may lead to misinterpretation of CBC data. Current Interpretive Data was last revised on 2017. Testing performed by: [address] [address] Imm gran pct 0.4 % [facility] CH Comment: Interpretive Data Percent cell count reference ranges are not reported, since discordance with absolute values may lead to misinterpretation of CBC data. Current Interpretive Data was last revised on 2017. Testing performed by: [address] [address] Lymphocyte pct 33.7 % [facility] Comment: Interpretive Data Percent cell count reference ranges are not reported, since discordance with absolute values may lead to misinterpretation of CBC data. Current Interpretive Data was last revised on 2017. Testing performed by: [address] [address] Monocyte pct 5.5 % [facility] CH Comment: Interpretive Data Percent cell count reference ranges are not reported, since discordance with absolute values may lead to misinterpretation of CBC data. Current Interpretive Data was last revised on 2017. Testing performed by: [address] [address] Eosinophil pct 3.0 % [facility] CH Comment: Interpretive Data Percent cell count reference ranges are not reported, since discordance with absolute values may lead to misinterpretation of CBC data. Current Interpretive Data was last revised on 2017. Testing performed by: [address] [address] Basophil pct 0.4 % [facility] CH Comment: Interpretive Data Percent cell count reference ranges are not reported, since discordance with absolute values may lead to misinterpretation of CBC data. Current Interpretive Data was last revised on 2017. Testing performed by: [address] [address] Blood 10/19/2024 11:1 3 AM CDT 10/19/2024 5:50 PM CDT Ryan Levine MD LAB BLOOD ORDERABLES Final Result Performing Organization Address [facility] Co de Phone Number [place] [phone] [facility] [place] [address] * PSA screen (10/19/2024 11:13 AM CDT) [...] data last revised 21. Testing performed by: [address] [address] Blood 10/19/2024 11:1 3 AM CDT 10/19/2024 5:50 PM CDT Ryan Levine MD LAB BLOOD ORDERABLES Final Result Performing Organization Address [facility] de Phone Number [facility] [address] [facility] [place] [address] * CBC with auto differential (10/19/2024 11:13 AM CDT) WBC 7.66 3.80 - 9.90 K/cumm Comment:Testing performed by : [address] [address] Hgb 15.5 13.0 - 17.5 g/dL [facility] CH Comment:Testing performed by : [facility], [address] [place] [address], [address] Hct 45.9 38.9 - 50.3 % C[facility]ER CH Comment:Testing performed by : [facility], [address] [place] [address], [address] Plt 340 150 - 400 K/cumm CERNER CH Comment:Testing performed by : [facility], [address] [place] [address], [address] MPV 9.1 9.1 - 12.3 fL [facility] CH Comment:Testing performed by : [facility], [address] [place] [address], [address] RBC 5.04 4.30 - 5.80 M/cumm C[facility]ER CH Comment:Testing performed by : [address], [address] MCV 91.1 81.3 - 96.4 fL [facility]ER CH Comment:Testing performed by : [address], [address] MCH 30.8 27.1 - 33.3 pg [facility] CH Comment:Testing performed by : [facility], [address] [place] [address], [address] MCHC 33.8 32.3 - 35.7 g/dL [facility] CH Comment:Testing performed by : [address], [address] RDW CV 12.5 11.1 - 14.9 % C[facility] CH Comment:Testing performed by : [address], [address] RDW SD 40.9 35.7 - 48.1 fL [facility] CH Comment:Testing performed by : [address], [address] NRBC abs 0.00 0.00 - 0.01 K/cumm CERNER CH Comment:Testing performed by : [address], [address] Blood 10/19/2024 11:1 3 AM CDT 10/19/2024 5:50 PM CDT Ryan Levine MD LAB BLOOD ORDERABLES Final Result CERNER [address] [facility] Department [place] [address] * (ABNORMAL) Albumin Creatinine Ratio, Urine (10/19/2024 11:13 AM CDT) Pathologist [facility] Albumin Ur 87.8 mg/L Comment: Interpretive Data No reference range established. Current interpretive data was last revised 2018. Testing performed by: [facility], [address] [place] [address]., [address] Creatinine Ur 239.1 mg/dL [facility] Comment: Interpretive Data No reference range established. Current interpretive data was last revised 2018. Testing performed by: [address] [address] Albumin Creatinine Ratio, Ur 37(H) 1 - 29 mg/g [facility] Comment:Testing performed by : [address] [address] Urine 10/19/2024 11:1 3 AM CDT 10/19/2024 5:50 PM CDT Ryan Levine MD LAB URINE ORDERABLES Final Result [facility] [address] [facility] Department [place] [address] * (ABNORMAL) Hemoglobin A1c (10/19/2024 11:13 AM CDT) Pathologist [facility] Hgb A1C 10.7(H) 4.0 - 5.6 % Comment:Testing performed by : [address] [address] Estimated Average Glucose 260 mg/dL [facility] Comment: The ADA recommends reporting an estimated Average Glucose (eAG) with all Hemoglobin A1c results using the equation derived from a study of 507 normal and diabetic adults. Minority populations were underrepresented and children were not included. (Diabetes Care 31:4784-4380, 2008). The eAG is not equivalent to a fasting glucose. Testing performed by: [address] [address] Blood 10/19/2024 11:1 3 AM CDT 10/19/2024 5:50 PM CDT Ryan Levine MD LAB BLOOD ORDERABLES Final Result [facility] [id number] [place] [address] Department [place] [address] * (ABNORMAL) Lipid panel (10/19/2024 11:13 AM CDT) Cholesterol 128 30 - 199 mg/dL Comment: [...] last revised on 2018. Testing performed by: [address] [address] Triglycerides 293(H) <=149 mg/dL [facility] HERNANDEZ Comment: [...] last revised on 2018. Testing performed by: [address] [address] HDL 36(L) >=40 mg/dL [facility] HERNANDEZ Comment: Interpretive Data Ages [...] last revised on 2018. Testing performed by: [facility], [address] [place] [address]., [address] LDL, calculated 47 <=129 mg/dL [facility] Comment: [...] last revised on 2024. Testing performed by: [facility], [address] [place] [address]., [address] Non-HDL Cholesterol 92 mg/dL [facility] Comment: Interpretive [...] last revised on 2018. Testing performed by: [address] [address] Chol/HDL ratio 4 CERNER Comment:Testing performed by : [address] [address] Blood 10/19/2024 11:1 3 AM CDT 10/19/2024 5:50 PM CDT Ryan Levine MD LAB BLOOD ORDERABLES Final Result [address] Department [place] [address] * (ABNORMAL) Comprehensive metabolic panel (10/19/2024 11:13 AM CDT) Sodium 134(L) 135 - 145 mmol/L Comment:Testing performed by : [address] [address] Potassium, pl 4.5 3.3 - 4.9 mmol/L CERNER Comment:Testing performed by : [address] [address] Chloride 98 97 - 110 mmol/L CERNER Comment:Testing performed by : [address] [address] CO2 26 22 - 32 mmol/L CERNER Comment:Testing performed by : [address] [address] Anion gap 10 2 - 15 mmol/L [facility]:Testing performed by : [address] [address] BUN 16 6 - 25 mg/dL CERNER Comment:Testing performed by : [address] [address] Creatinine 0.93 0.80 - 1.30 mg/dL CERNER Comment:Testing performed by : [address] [address] Glucose 202(H) 70 - 199 mg/dL CERNER Comment: Interpretive Data Fasting glucose >/= 126 [...] was last revised 2022. Testing performed by: [facility], [address] [place] [address]., [address] Calcium 9.5 8.5 - 10.3 mg/dL CERNER Comment:Testing performed by : [address] [address] Bilirubin, total 0.6 0.1 - 1.2 mg/dL C[facility]ER CH Comment:Testing performed by : [address], [address] Protein, pl 7.2 6.5 - 8.5 g/dL CERNER CH Comment:Testing performed by : [address], [address] Albumin 3.9 3.5 - 5.0 g/dL C[facility]ER CH Comment:Testing performed by : [address] [address] Alk phos 75 40 - 130 Units/L C[facility] CH Comment:Testing performed by : [address] [address] ALT 25 7 - 55 Units/L C[facility] CH Comment:Testing performed by : [address], [address] AST 28 10 - 50 Units/L C[facility]ER CH Comment:Testing performed by : [address] [address] Blood 10/19/2024 11:1 3 AM CDT 10/19/2024 5:50 PM CDT us Ryan Levine MD LAB BLOOD ORDERABLES Final Result [address] Department [place] [address] * DIABETES EYE EXAM (08/08/2024 10:24 AM FORM SETTER HELPER) SCRIBED HM DIABETIC DILATED EYE EXAM Normal Historical Provider HEALTH MAINTENANCE Final Result * Hepatitis C [...] last revised on 2019. Testing performed by: [facility], [address] [place] [address]., [address] Blood 04/12/2024 12:0 4 PM CDT 04/12/2024 5:26 PM CDT Ryan Levine MD LAB MICROBIOLOGY - GENERAL ORDERABLES Final Result [facility] [address] [facility] Department [place] [address] from Last 3 Months or Most Recently Relevant to Health Maintenance [facility] Care Teams Hygiene Teacher Relationship Specialty Start Date End Date Ryan Levine MD [address] [place] [address] PCP - General Internal Medicine 11/22/23
--- OUTSIDE RECORDS SUMMARY | 2024-12-24 12:36 | XMS_ITS | Clinical Summary ---
Author Organization [facility] Address [address] [place] [address] Phone Care Team Providers Care Tattoo Artist Name Role Phone Provider, None Primary Care Provider Unavailabl e Allergies No known active allergies Medications naproxen (NAPROSYN) 500 MG Tablet Take 1 Tablet by mouth 2 times daily as needed for Moderate or more severe pain. 20 Tablet 04/26/2022 Active Social History Tobacco Use Types Packs/Day Years Used Date Smoking Tobacco: Former Smokeless Tobacco: Never Alcohol Use Standard Drinks/Week Comments Not Currently 0 (1 standard drink = 0.6 oz pur e alcohol) Sex and Gender Information Value Date Recorded Sex Assigned at Not on file Legal Sex Male 11:02 PM CDT Gender Identity Not on file Sexual Orientation Not on file Last Filed Vital Signs Vital Sign Reading Time Taken Comments Blood Pressure 130/84 04/26/2022 10:00 AM CDT Pulse 73 04/26/2022 10:00 AM CDT Temperature 36.1 C (96.9 F) 04/26/2022 9:53 AM CDT Respiratory Rate 17 04/26/2022 9:53 AM CDT Oxygen Saturation 100% 04/26/2022 10:00 AM CDT Inhaled Oxygen Concentration - - Weight 118.4 kg (261 lb) 04/26/2022 9:53 AM CDT Height 175.3 cm (5' 9) 04/26/2022 9:53 AM CDT Body Mass Index 38.54 04/26/2022 9:53 AM CDT Plan of Treatment Not on file Insurance [employer] Member Subscriber Plan / Payer (Ef fective 2021-Present) Name:Miquel Oshea Relation to Subscriber:Self Name:Miquel Oshea Payer ID:[id number] (NAIC) Group ID:NONE Type:Not on file Address: [address] [address] Care Teams Tattoo Artist Relationship Specialty Start Date End Date Provider, None SATNAM PCP - General 04/26/22
--- OUTSIDE RECORDS SUMMARY | 2024-12-24 12:36 | XMS_ITS | Patient Health Record ---
Author Organization [facility] Address [address] [facility] [place] [id number] Care Team Providers Care Feather Duster Winder Name Role Phone Roslyn Jansen Unavailable [phone] Non [facility] Provider, Provider Unavailable Unavailable Reason For Referral No Information Plan Of Treatment No Information
== END 2024-12-24 12:30 | disposition home or self-care (01) ==
PROVIDERS: Emergency Provider Nurse Practitioner Family
DX: S93.401A Sprain of unspecified ligament of right ankle, initial encounter (principal); W18.09XA Striking against other object with subsequent fall, initial encounter; Y99.0 Civilian activity done for income or pay
CPT/HCPCS: 73610; 99213; G0463